=== PATIENT | female | born 2005 | race Caucasian/White ===

== ENCOUNTER → 2024-04-28 | Outpatient (CLI) | payer OTHER ==
[2024-04-28 20:20] LABS: Bacterial Vaginosis PCR Negative (NEGATIVE); Candida Group, PCR NOT DETECTED (NOT DETECT); Candida glabrata-krusei, PCR NOT DETECTED (NOT DETECT)
== END ==
LOC: LAB 16:41 → LAB SHORT 16:41
PROVIDERS: Physician Assistant Medical
DX: N94.819 Vulvodynia, unspecified (principal)
CPT/HCPCS: 87481; 87661; 87801

== ENCOUNTER → 2024-05-31 | Outpatient (CLI) | payer OTHER | LOC: LAB SHORT 14:32 → LAB 14:32 | DX: N94.819 Vulvodynia, unspecified (principal) | CPT/HCPCS: 87070; 87077; 87186; 87205 ==

== ENCOUNTER → 2024-06-11 | Outpatient (CLI) | payer OTHER ==
[2024-06-12 13:52] LABS: Bacterial Vaginosis PCR Negative (NEGATIVE); Candida Group, PCR NOT DETECTED (NOT DETECT); Candida glabrata-krusei, PCR NOT DETECTED (NOT DETECT)
[2024-06-15 14:25] LABS: MYCOPLASMA GENITALIUM BY PCR Not Detected; MYCOPLASMA HOMINIS BY PCR Not Detected; UREAPLASMA MYCOPLASMA SOURCE Urine; UREAPLASMA PARVUM BY PCR Not Detected; UREAPLASMA UREALYTICUM BY PCR Not Detected
== END ==
LOC: LAB 18:13 → LAB SHORT 18:13
PROVIDERS: Advanced Practice Midwife
DX: R10.2 Pelvic and perineal pain (principal); N76.0 Acute vaginitis
CPT/HCPCS: 87481; 87563; 87661; 87798; 87801

== ENCOUNTER → 2024-07-09 | Outpatient (CLI) | payer OTHER ==
[2024-07-09 19:33] LABS: Bacterial Vaginosis PCR Negative (NEGATIVE); Candida Group, PCR NOT DETECTED (NOT DETECT); Candida glabrata-krusei, PCR NOT DETECTED (NOT DETECT)
== END ==
LOC: LAB 15:48 → LAB SHORT 15:48
PROVIDERS: Advanced Practice Midwife
DX: N76.0 Acute vaginitis (principal); B37.31 Acute candidiasis of vulva and vagina
CPT/HCPCS: 87481; 87661; 87801

== ENCOUNTER → 2024-08-11 | Outpatient (CLI) | payer OTHER ==
[2024-08-11 15:48] LABS: Bacterial Vaginosis PCR Negative (NEGATIVE); Candida Group, PCR NOT DETECTED (NOT DETECT); Candida glabrata-krusei, PCR NOT DETECTED (NOT DETECT)
== END | disposition home or self-care (01) ==
LOC: LAB SHORT 11:58 → LAB 11:58
PROVIDERS: Advanced Practice Midwife
DX: N76.0 Acute vaginitis (principal)
CPT/HCPCS: 87481; 87661; 87801